=== PATIENT | male | born 1995 | race Two or more races ===

== ENCOUNTER → 2022-08-24 | Day surgery (SDC) | payer MEDICAID, OTHER ==
[~2022-08-24] VITALS: Ht 175.3 cm; Wt 79.4 kg
[~2022-08-24] MED LIST: ACETAMINOPHEN 500 MG TAB PO ONE; ACETAMINOPHEN IV 100 ML IV ONE; ACETAMINOPHEN IV 1000 MG/100ML (10MG/ML) IV ONE; CELECOXIB 100 MG CAP PO ONE; CLINDAMYCIN 600MG IV 50 ML IV ONE; DexAMETHasone SOD PHOS 10MG/1ML VIAL INJ ONE; GABAPENTIN 100 MG CAP PO ONE; GLYCOPYRROLATE 0.2 MG/ML 1ML VIAL ONE; HYDR1TAB97 PO; IBUP800T27 PO; KETOROLAC TROMETH 30 MG/ML 1ML VIAL ONE; LIDOCAINE 2% (LOCAL ANESTH.) PF 5ml SDV ONE; ONDANSETRON HCL 4 MG/2 ML VIAL ONE; PHENYLEPHRINE HCL 10 MG/ML VL ONE; PROPOFOL 10 MG/ML 20 ML IV ONE; ROCURONIUM 10MG/ML 10ML VIAL IV ONE; SODIUM CHLORIDE LOCK 10 ML ONE; SUGAMMADEX 200mg/2ml Vial (100MG/ML) IV ONE; TRANEXAMIC ACID 20 ML ONE; fentaNYL CITRATE 100 MCG/2 ML VL ONE
[2022-08-24 16:00] VITALS: BP 136/66
== END | disposition home or self-care (01) ==
LOC: SUR 11:33
PROVIDERS: ATTEND Orthopaedic Surgery
DX: S42.022A Displaced fracture of shaft of left clavicle, initial encounter for closed fracture (principal); Z88.0 Allergy status to penicillin; Z98.890 Other specified postprocedural states; Z79.891 Long term (current) use of opiate analgesic; Z20.822 Contact with and (suspected) exposure to COVID-19; Z79.1 Long term (current) use of non-steroidal anti-inflammatories (NSAID); X58.XXXA Exposure to other specified factors, initial encounter; Y93.89 Activity, other specified; Y92.89 Other specified places as the place of occurrence of the external cause; Y99.8 Other external cause status
CPT/HCPCS: 23515; 64415; 73000; 76000; C1713; J0131; J1100; J1885; J2001; J2370; J2405; J2704; J3490; U0003